=== PATIENT | male | born 1965 | race African-American/Black ===

== ENCOUNTER 2016-08-24 22:43 | Emergency (ER) | payer OTHER | END 2016-08-25 02:59 | disposition home or self-care (01) | LOC: FER 22:43 | DX: J98.01 Acute bronchospasm (principal); J41.1 Mucopurulent chronic bronchitis; F17.210 Nicotine dependence, cigarettes, uncomplicated | CPT/HCPCS: 71010; 87804; 87899; 94640 ==

== ENCOUNTER 2020-11-06 08:31 | Emergency (ER) | payer OTHER ==
[2020-11-06 10:40] LABS: CREATININE 0.88 mg/dL (0.67-1.17); POTASSIUM 3.8 mmol/L (3.5-5.1)
== END 2020-11-06 10:30 | disposition home or self-care (01) ==
LOC: FER 08:31
PROVIDERS: Emergency Medicine
DX: S20.212A Contusion of left front wall of thorax, initial encounter (principal); I10 Essential (primary) hypertension; F17.210 Nicotine dependence, cigarettes, uncomplicated; W01.0XXA Fall on same level from slipping, tripping and stumbling without subsequent striking against object, initial encounter
CPT/HCPCS: 36415; 80048; Q9967